=== PATIENT | female | born 1980 | race Caucasian/White ===

== ENCOUNTER 2016-11-28 11:57 | Day surgery (SDC) | payer MEDICAID ==
[2016-11-28] MEDS ORDERED: MIDAZOLAM HCL 2MG/2ML VIAL IV ONE (14:00)
[2016-11-28] MEDS ORDERED: LIDOCAINE 2% MDV (20MG/ML) 20ML VIAL IV ONE (14:00)
[2016-11-28] MEDS ORDERED: PROPOFOL 10 MG/ML VIAL IV ONE (14:00)
--- NOTE | 2016-11-29 08:40 | Operative Note ---
DATE OF SURGERY: OPERATION: COLONOSCOPY with random biopsy and cold forceps polypectomy x2. PREOPERATIVE DIAGNOSIS: Change in bowel habits with diarrhea and family history of colon cancer. POSTOPERATIVE DIAGNOSES: 1. Ascending colon polyp, status post cold forceps polypectomy. 2. Descending colon polyp, status post cold forceps polypectomy. PREPARATION QUALITY: Good. ESTIMATED BLOOD LOSS: Minimal. SPECIMENS: Random colon, ascending colon polyp, descending colon polyp. COMPLICATIONS: None apparent. PROCEDURE: After informed consent was obtained from the patient, she was placed in the left lateral decubitus position in the endoscopy suite, sedated and monitored by the department of anesthesia. Digital rectal exam was unremarkable. A well-lubricated [id number] colonoscope was inserted into the rectum and advanced to the cecum. Preparation quality was good. The cecum, ileocecal valve, appendiceal orifice, and terminal ileum were unremarkable. The ascending colon revealed diminutive polyp removed in piecemeal fashion with a cold forceps. Minimal bleeding was noted. Random ascending colon, transverse colon, and descending colon biopsies were also obtained. These were placed in a random biopsy container. There was a diminutive descending colon polyp removed in piecemeal fashion with a cold forceps. Minimal bleeding was noted. The polyp was retrieved. The remainder of the descending colon and sigmoid colon and rectum were unremarkable. J-turn views of the anorectum were unremarkable. The endoscope was straightened, the rectal ampulla deflated, and the endoscope was removed. RECOMMENDATIONS: The patient should resume her medications and diet. I would suggest a fiber supplement such as Citrucel with Benefiber daily. She will require repeat exam in 5-10 years pending tissue results. As always, thank you for allowing me to participate in the healthcare of your patients. Papo Reaves DO CC: Dr. Jalen FIERRO
== END 2016-11-28 14:16 | disposition home or self-care (01) ==
LOC: HOP 11:57
PROVIDERS: ATTEND Internal Medicine Gastroenterology
DX: R19.4 Change in bowel habit (principal); Z80.0 Family history of malignant neoplasm of digestive organs; D12.4 Benign neoplasm of descending colon; D12.2 Benign neoplasm of ascending colon